=== PATIENT | male | born 1995 | race Caucasian/White ===

== ENCOUNTER 2024-10-03 10:50 | Emergency (ER) | payer OTHER, SELFPAY ==
[2024-10-03] VITALS (15 sets, daily range): BP systolic 105–140; BP diastolic 54–95; PULSE 66–108; RESP 18; TEMP 36.8; O2SAT 96–100; BMI 37.8
--- NOTE | 2024-10-03 12:07 | ED.HA ---
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 Patient was told that the right eye has some deviation they were told to follow up with the primary care but also refer to Neuro-Ophthalmology. They called to set up an appointment with primary care who prompted them to come to the ED. Patient states though get double vision episodes that are pretty short usually resolved they focused a lot happens multiple times today but we will tend to kick off headache which we will then persist. No fevers. No new numbness tingling or weakness otherwise. No chest pain or shortness of breath. Gets some nausea sometimes but no vomiting. No issues with bowel movements. No incontinence. No weakness, numbness or tingling in other extremities no facial droop. Patient states home medications include duloxetine, fluoxetine, testosterone, Adderall and omeprazole has a history of double mastectomy. No known drug allergies. No tobacco, alcohol or recreational drugs. Related Data Home Medications Medication Instructions Recorded Confirmed ibuprofen 200 mg tablet 200 mg PO PRN PRN ##0 06/10/17 melatonin 3 mg disintegrating 3 mg PO ##0 06/10/17 tablet nortriptyline 25 mg capsule 25 mg PO HS ##0 06/10/17 sumatriptan succinate 100 mg 100 mg PO PRN PRN ##0 06/10/17 tablet (Imitrex) Previous Rx's Medication Instructions Recorded cyclobenzaprine 5 mg tablet 5 mg PO TID PRN #12 tabs 06/10/17 tramadol 50 mg tablet 50 - 100 mg (1 - 2 x 50 mg) PO TID 06/10/17 #18 tabs Allergies Allergy/AdvReac Type Severity Reaction Status Date / Time No Known Allergies Allergy Uncoded 01/06/18 12:44 Review of Systems Review of Systems ROS Unobtainable: All systems reviewed & are unremarkable except as noted in HPI and below Patient History Social History Smoking Status: Unknown if ever smoked Smoking Status: Unknown if ever smoked Exam Narrative Exam Narrative: GEN: well nourished, well appearing, alert and oriented x 3, patient appears to be in no acute distress. HEENT: Atraumatic, pupils are equal round reactive to light, extraocular movements are intact on exam here, nares are clear, TMs are clear with no fluid, there is no conjunctival pallor. Throat is clear without any exudates, erythema, tonsillar enlargement or uvular deviation, no facial droop, nontender with a temporal. HEART: Regular rate and rhythm without murmur, clicks, rubs. Pulses are equal in upper and lower extremities LUNGS:Lungs clear to auscultation, no wheezes, rales, crackles, chest moves symmetrically ABD:bowel sounds normal, soft, non-tender, no guarding, rebound, rigidity, no masses noted, no hepatosplenomegaly :No CVA tenderness MSCL: Non-tender, no muscle atrophy, muscles strength 5/5 upper and lower extremities, full range of motion, normal gait NEURO:CN 2-12 intact, sensation normal, reflexes 2/4 upper and lower extremities. finger nose finger test normal, heel nicole test normal Initial Vital Signs Initial Vital Signs: Vital Signs Pulse Oximetry 96 10/03/24 10:56 Course Orders Ordered: ED Orders 10/03/24 11:05 CBC Auto Diff [Complete Blood Count AUTO DIFF] Stat CMP [Comprehensive Metabolic Panel] Stat CRP [C-Reactive Protein Quant] Stat ESR [Erythrocyte Sedimentation Rate] Stat 10/03/24 12:36 CT head/brain wo con Stat Discontinued Medications Ketorolac Tromethamine (Ketorolac 30 Mg/Ml Vial) 15 mg IV NOW ONE Stop: 10/03/24 13:47 Last Admin: 10/03/24 14:29 Dose: 15 mg Documented By: Vital Signs Vital signs: Vital Signs - 8 hr 10/03/24 10:56 10/03/24 10:57 10/03/24 10:57 Temperature Pulse Rate 106 H Respiratory Rate Blood Pressure 140/95 H Pulse Oximetry 96 97 Oxygen Delivery Method 10/03/24 11:00 10/03/24 11:02 10/03/24 11:30 Temperature 98.2 F Pulse Rate 103 H 108 H 74 Respiratory Rate 18 Blood Pressure 140/95 H Pulse Oximetry 97 97 97 Oxygen Delivery Method Room Air Room Air 10/03/24 12:30 10/03/24 12:44 10/03/24 12:45 Temperature Pulse Rate 66 86 Respiratory Rate 18 Blood Pressure 135/78 124/58 L Pulse Oximetry 99 99 Oxygen Delivery Method Room Air 10/03/24 12:45 10/03/24 13:00 10/03/24 13:00 Temperature Pulse Rate 67 66 Respiratory Rate Blood Pressure 127/62 Pulse Oximetry 100 98 Oxygen Delivery Method 10/03/24 13:30 10/03/24 13:31 10/03/24 13:31 Temperature Pulse Rate 66 67 Respiratory Rate Blood Pressure 117/69 Pulse Oximetry 99 100 Oxygen Delivery Method 10/03/24 14:00 10/03/24 14:01 10/03/24 14:01 Temperature Pulse Rate 77 73 Respiratory Rate Blood Pressure 105/60 Pulse Oximetry 100 100 Oxygen Delivery Method 10/03/24 14:30 10/03/24 14:31 10/03/24 14:31 Temperature Pulse Rate 80 80 Respiratory Rate Blood Pressure 114/54 L Pulse Oximetry 98 98 Oxygen Delivery Method MDM - Headache Lab Data 10/03/24 11:05 10/03/24 11:05 Labs: Lab Results 10/03/24 Range/Units 11:05 WBC 9.2 (4.5-11.0) X10^3/uL RBC 4.63 (4.5-5.9) X10^6/uL Hgb 14.7 (13.5-17.5) g/dL Hct 42.0 (41-53) % MCV 90.7 (80-100) fL MCH 31.7 (26-34) PG MCHC 35.0 (30-36) % RDW 13.1 (11.6-14.8) % Plt Count 288 (150-400) X10^3/uL Neut % (Auto) 68.7 (50-75) % Lymph % (Auto) 22.8 L (25-40) % [place] % (Auto) 6.4 (3-14) % Eos % (Auto) 1.2 L (2-4) % Baso % (Auto) 0.9 (0-2) % Neut # (Auto) 6300 (3279-4798) /uL Lymph # (Auto) 2100 (9946-6415) /uL [place] # (Auto) 600 (0-900) /uL Eos # (Auto) 100 (0-450) /uL Baso # (Auto) 100 (0-100) /uL ESR 8 (0-15) MM/HR Sodium 138 (137-145) mmol/L Potassium 3.9 (3.4-5.1) mmol/L Chloride 105 (98-107) mmol/L Carbon Dioxide 25 (22-32) mmol/L BUN 13 (9-20) mg/dL Creatinine 0.91 (0.66-1.25) mg/dL Estimated GFR > 60 (>60) mL/min BUN/Creatinine Ratio 14.3 (6-22) Glucose 104 H (70-100) mg/dL Calcium 9.6 (8.4-10.2) mg/dL Total Bilirubin 0.4 (0.2-1.3) mg/dL AST 40 (17-59) IU/L ALT 65 H (<50) IU/L Alkaline Phosphatase 76 (38-126) U/L C-Reactive Protein 1.2 H (<1.0) mg/dL Total Protein 7.6 (6.3-8.2) g/dL Albumin 4.4 (3.5-5.0) g/dL Globulin 3.2 (1.7-4.1) g/dL Albumin/Globulin Ratio 1.4 (1.0-2.8) Imaging Data CT scan - head: Radiologist's Impression: [place] [address] CT Scan Report Signed Patient: Helene Mariee MR#: [id number] : 1995 Acct:[id number] Age/Sex: 29 / M Date of Service: 10/03/24 Loc: ED Accession Number: [id number] Procedure: CT head/brain wo con Ordering Provider: Vickie Michel D.O. PROCEDURE: CT HEAD/BRAIN WO CON INDICATIONS: prado, intermittent double vision x 1 year TECHNIQUE: Noncontrast 4.5 mm thick angled axial sections acquired from the foramen magnum to the vertex, with coronal and sagittal reformats. For radiation dose reduction, the following was used: automated exposure control, adjustment of mA and/or kV according to patient size. COMPARISON: None. FINDINGS: Image quality: Diagnostic. CSF spaces: Basal cisterns are patent. No extra-axial fluid collections. Ventricles are normal in size and shape. Brain: No midline shift. No intracranial masses or hemorrhage. Hector-white matter interface is normal. Skull and face: Calvarium and visualized facial bones are intact, without suspicious lesions. Sinuses: Visualized sinuses and mastoids are clear. IMPRESSION: No acute intracranial pathology. Dictated by: Minor Lucas M.D. on 10/03/2024 at 12:55 Approved by: Minor Lucas M.D. on 10/03/2024 at 12:56 [facility] Narrative Medical decision making narrative: 29-year-old female to male transgender individual who has had intermittent diplopia with headaches over the past year either video photographer or Ophthalmology at [facility] and was told to follow up with primary care as well as Neuro-Ophthalmology. They have been given contact for Neuro-Ophthalmology. When they called to set up primary care appointment and gave symptoms were told to come to the emergency department. We will obtain imaging and labs. Head CT shows no acute change Labs show normal white count hemoglobin of 14 platelets of 288 ESR is 8. Electrolytes are normal BUN 13 creatinine 0.91 glucose is 104 CRP is 1.2 Patient has been referred to Neuro-Ophthalmology by their eye doctor. Reviewed findings from today. I feel this is most appropriate next course of action patient's exam here today does not show any major changes has been longstanding and chronic symptoms no vision loss patient feels comfortable with the plan. Did note labs CRP is slightly elevated ESR is appropriate patient does not have any significant electrolyte abnormalities non-con head CT shows no acute mass or change. Discussed return precautions all questions answered. Discharge Plan Departure Patient Disposition: Home Clinical Impression: Diplopia, Headache Activity Restrictions/Additional Instructions: Please follow up with Neuro-Ophthalmology as referred by your eye doctor. Please return if you have new changes such as significant vision changes, facial droop, difficulty with speech, numbness weakness or new difficulty with movement, persistent vomiting, lightheadedness or passing out or other new or concerning changes. Prescriptions: No Action sumatriptan succinate [Imitrex] 100 MG tablet 100 mg PO PRN PRNQty: 0 nortriptyline 25 MG capsule 25 mg PO HS Qty: 0 ibuprofen 200 MG tablet 200 mg PO PRN PRNQty: 0 melatonin 3 MG tablet,disintegrating 3 mg PO Qty: 0 tramadol 50 MG tablet 50 - 100 mg PO TID Qty: 18 0RF cyclobenzaprine 5 MG tablet 5 mg PO TID PRNQty: 12 0RF Stand Alone Forms: Patient Portal/API/Survey, Work Release Note
--- NOTE | 2024-10-03 12:36 | DI.CT.S_ITS ---
PROCEDURE: CT HEAD/BRAIN WO CON INDICATIONS: prado, intermittent double vision x 1 year TECHNIQUE: Noncontrast 4.5 mm thick angled axial sections acquired from the foramen magnum to the vertex, with coronal and sagittal reformats. For radiation dose reduction, the following was used: automated exposure control, adjustment of mA and/or kV according to patient size. COMPARISON: None. FINDINGS: Image quality: Diagnostic. CSF spaces: Basal cisterns are patent. No extra-axial fluid collections. Ventricles are normal in size and shape. Brain: No midline shift. No intracranial masses or hemorrhage. Hector-white matter interface is normal. Skull and face: Calvarium and visualized facial bones are intact, without suspicious lesions. Sinuses: Visualized sinuses and mastoids are clear. IMPRESSION: No acute intracranial pathology. Dictated by: Minor Lucas M.D. on 10/03/2024 at 12:55 Approved by: Minor Lucas M.D. on 10/03/2024 at 12:56
[2024-10-03 12:45] LABS: Add Manual Diff / Slide Review NO; Basophils Absolute Auto 100 /uL (0-100); Basophils Percent Auto 0.9 % (0-2); Eosinophils Absolute Auto 100 /uL (0-450); Eosinophils Percent Auto 1.2 % (2-4); Hemoglobin 14.7 g/dL (13.5-17.5); Lymphocytes Absolute Auto 2100 /uL (1100-4500); Lymphocytes Percent Auto 22.8 % (25-40); Mean Corpuscular Hemoglobin 31.7 PG (26-34); Mean Corpuscular Volume 90.7 fL (80-100); Monocytes Absolute Auto 600 /uL (0-900); Monocytes Percent Auto 6.4 % (3-14); Neutrophils Absolute Auto 6300 /uL (1500-7000); Neutrophils Percent Auto 68.7 % (50-75); Platelet Count 288 X10^3/uL (150-400); Red Blood Cell Count 4.63 X10^6/uL (4.5-5.9); Red Cell Distribution Width 13.1 % (11.6-14.8); White Blood Cell Count 9.2 X10^3/uL (4.5-11.0)
[2024-10-03 12:51] LABS: Alanine Aminotransferase 65 IU/L (<50); Albumin 4.4 g/dL (3.5-5.0); Albumin Globulin Ratio 1.4 (1.0-2.8); Alkaline Phosphatase 76 U/L (38-126); Aspartate Aminotransferase 40 IU/L (17-59); BUN Creatinine Ratio 14.3 (6-22); Bilirubin Total 0.4 mg/dL (0.2-1.3); Blood Urea Nitrogen 13 mg/dL (9-20); C-Reactive Protein Quant 1.2 mg/dL (<1.0); Calcium 9.6 mg/dL (8.4-10.2); Carbon Dioxide 25 mmol/L (22-32); Chloride 105 mmol/L (98-107); Estimated Glomerular Filt Rate > 60 mL/min (>60); Globulin 3.2 g/dL (1.7-4.1); Glucose 104 mg/dL (70-100); HEMOLYSIS < 15 (0-50); Potassium 3.9 mmol/L (3.4-5.1); Sodium 138 mmol/L (137-145); Total Protein 7.6 g/dL (6.3-8.2)
--- NOTE | 2024-10-03 13:27 | PC.NURSE ---
This RN checks on patient. He is resting on his side and looking at his phone. C/o RIGHT sided headache, intermittent nausea, and intermittent blurred & double vision for past 1-2 weeks. Pt is A&Ox4. Requesting pain meds. Provider Anand made aware.
[2024-10-03 13:50] LABS: Erythrocyte Sedimentation Rate 8 MM/HR (0-15)
[2024-10-03] MEDS: KETOROLAC 30 MG/ML VIAL 15 MG IV (14:29)
== END 2024-10-03 14:55 | disposition home or self-care (01) ==
PROVIDERS: Emergency Provider Emergency Medicine
DX: H53.2 Diplopia (principal); R51.9 Headache, unspecified
CPT/HCPCS: 36415; 70450; 80053; 85025; 85651; 86140; 96374; 99284; J1885